=== PATIENT | male | born 1995 | race Two or more races ===

== ENCOUNTER 2019-05-21 14:25 | Emergency (ER) | payer SELFPAY ==
[~2019-05-21] VITALS: Ht 180.3 cm; Wt 72.6 kg
--- NOTE | 2019-05-21 15:18 | PHYS DOC ---
Past Medical History Past Medical History: No Pertinent History (JERI DEL CID NP) Past Surgical History: No Surgical History (JERI DEL CID NP) Adult General Chief Complaint Chief Complaint: HAND PROBLEM HPI HPI Patient is a 23 year old male who presents with left hand pain after shooting self with a nailgun approximately 2hrs prior to arrival. Patient was working with father who immediately pulled the nail out of hand. Patient is able to grasp with hand but states painful to flex/extend fingers. Has not washed wound or hand since accident. Per father, is not sure whether or not patient has ever received tetanus immunization. (JERI DEL CID NP) Review of Systems Review of Systems Constitutional: Denies fever or chills Eyes: Denies change in visual acuity, redness, or eye pain HENT: Denies nasal congestion or sore throat Respiratory: Denies cough or shortness of breath Cardiovascular: No additional information not addressed in HPI GI: Denies abdominal pain, nausea, vomiting, bloody stools or diarrhea : Denies dysuria or hematuria Musculoskeletal: Complains of pain in left hand at base of thumb. Integument: Denies rash or skin lesions Neurologic: Denies headache, focal weakness or sensory changes Endocrine: Denies polyuria or polydipsia All other systems were reviewed and found to be within normal limits, except as documented in this note. (JERI DEL CID NP) Current Medications Current Medications Current Medications Medications (Trade) Dose Ordered Sig/Jamar Start Time Stop Time Status Last Admin Dose Admin Acetaminophen/ Hydrocodone Bitart (Lortab 5/325) 1 tab 1X ONCE 05/21/19 16:45 05/21/19 16:46 DC 05/21/19 16:52 1 TAB Diphtheria/ Tetanus/Acell Pertussis (Boostrix) 0.5 ml ONCE ONCE 05/21/19 15:30 05/21/19 15:31 DC 05/21/19 15:49 0.5 ML Ibuprofen (Motrin) 800 mg 1X ONCE 05/21/19 16:30 05/21/19 16:31 DC 05/21/19 16:07 800 MG Neomycin/ Polymyxin/ Bacitracin (Triple Antibiotic Ointment) 1 pkt 1X ONCE 05/21/19 16:45 05/21/19 16:46 DC 05/21/19 16:51 1 PKT (SADE PELAEZ DO) Allergies Allergies Allergies Coded Allergies Type Severity Reaction Last Updated Verified No Known Drug Allergies 05/21/19 No (SADE PELAEZ DO) Physical Exam Physical Exam Constitutional: Well developed, well nourished, no acute distress, non-toxic appearance. HENT: Normocephalic, atraumatic, bilateral external ears normal, oropharynx moist, no oral exudates, nose normal. Eyes: PERRLA, EOMI, conjunctiva normal, no discharge. Neck: Normal range of motion, no tenderness, supple, no stridor. Cardiovascular:Heart rate regular rhythm, no murmur Lungs & Thorax: Bilateral breath sounds clear to auscultation Abdomen: Bowel sounds normal, soft, no tenderness, no masses, no pulsatile masses. Skin: Warm, dry, no erythema, no rash. Back: No tenderness, no CVA tenderness. Extremities: Left hand with moderate amount of soft tissue swelling noted at base of left thumb. Puncture wound noted over thenar aspect with dried blood evident but without any current active bleeding or drainage. Tender to palp. NVI. Limited ROM. Neurologic: Alert and oriented X 3, normal motor function, normal sensory function, no focal deficits noted. Psychologic: Affect normal, judgement normal, mood normal. (JERI DEL CID NP) Current Patient Data Vital Signs Vital Signs Date Time Temp Pulse Resp B/P (MAP) Pulse Ox O2 Delivery O2 Flow Rate FiO2 05/21/19 16:52 18 97 Room Air 05/21/19 15:31 99.1 72 153/98 (116) 99.1 (SADE PELAEZ DO) EKG EKG [] (JERI DEL CID NP) Radiology/Procedures Radiology/Procedures [] (JERI DEL CID NP) Course & Med Decision Making Course & Med Decision Making Patient presents to ER after nail from gun pierced thenar aspect of left hand. Denies any paresthesias/no paralysis. No pallor or pulselessness noted. No known last tetanus. Tdap ordered. L hand XRay ordered to rule out fracture or possible foreign body. Pertinent Labs and Imaging studies reviewed. (See chart for details) FINDINGS: Bones: There is no evidence of acute fracture or dislocation. Joints: The joint spaces are normal. Miscellaneous: No radiopaque foreign bodies. IMPRESSION: No acute fracture. No radiopaque foreign body. Wound care ordered and Ibuprofen/Hydrocodone x 1 due to patient tearfulness. Patient given abx rx for Augmentin BID x 5 days and Hydrocodone prescription #10. Told to return to ER for worsening of pain/infection despite abx/pain meds. (JERI DEL CID NP) Dragon Disclaimer Dragon Disclaimer This electronic medical record was generated, in whole or in part, using a voice recognition dictation system. (JERI DEL CID NP) Departure Departure Impression: Primary Impression: Puncture wound of left hand without complication Disposition: HOME, SELF-CARE Condition: STABLE Referrals: NO PCP (PCP) Scripts Hydrocodone Bit/Acetaminophen (HYDROCODONE-APAP 5-325 ) 1 Tab Tablet 1 TAB PO PRN Q6HRS PRN for PAIN, #10 TAB 0 Refills Prov: JERI DEL CID NP 05/21/19 Amoxicillin/Potassium Clav (AUGMENTIN 875-125 TABLET) 1 Each Tablet 1 TAB PO BID for 5 Days, #10 TAB 0 Refills Prov: JERI DEL CID NP 05/21/19 Attending Signature Attending Signature I have reviewed the PA/ACCOUNT ADMINISTRATOR's note and plan of care. I was available for consultation as needed during the patient's visit in the emergency department. I agree with the clinical impression, plan, and disposition. (SADE PELAEZ DO) JERI DEL CID NP May 21, 2019 15:18 SADE PELAEZ DO May 23, 2019 13:19
[2019-05-21] MEDS ORDERED: DIPHTH,PERTUSS(ACELL),TET TOX 0.5 ML DISP.SYRIN. VAX IM ONE (15:30)
[2019-05-21 15:31] VITALS: BP 153/98
--- NOTE | 2019-05-21 15:36 | RAD ---
HAND LEFT 3V DATE: 05/21/2019 3:07 PM INDICATION: Shot self in hand with nail gun COMPARISON: None. FINDINGS: Bones: There is no evidence of acute fracture or dislocation. Joints: The joint spaces are normal. Miscellaneous: No radiopaque foreign bodies. IMPRESSION: No acute fracture. No radiopaque foreign body. Electronically signed by: Thierry Pollard MD (05/21/2019 3:33 PM) [id number]
[2019-05-21] MEDS ORDERED: IBUPROFEN 400 MG TABLET. PO ONE (16:30)
[2019-05-21] MEDS ORDERED: AMOX1TAB61 PO (16:41)
[2019-05-21] MEDS ORDERED: HYDR-2761 PO (16:42)
[2019-05-21] MEDS ORDERED: HYDROcodone/APAP 5/325MG 1 TAB TABLET PO ONE (16:45)
[2019-05-21] MEDS ORDERED: NEOMY/BACITR/POLYMYXIN OINT PACKET. TP ONE (16:45)
== END 2019-05-21 16:53 | disposition home or self-care (01) ==
LOC: ER 14:25
DX: S61.432A Puncture wound without foreign body of left hand, initial encounter (principal); Y93.89 Activity, other specified; Y92.89 Other specified places as the place of occurrence of the external cause; Y99.8 Other external cause status
CPT/HCPCS: 73130; 90471; 90715; 99284